=== PATIENT | female | born 1995 | race Asian ===

== ENCOUNTER 2017-08-16 11:46 | Emergency (ER) | payer OTHER ==
[~2017-08-16] VITALS: Ht 154.9 cm; Wt 54.5 kg
[2017-08-16] MEDS ORDERED: NEXP1IMP SC (12:02)
[2017-08-16 13:00] LABS: BASO # 0.1 10^3/uL (0.0-0.2); BASO % 0.3 % (0.0-1.0); EOS # 1.2 10^3/uL (0.0-0.50); EOS % 8.6 % (0.0-3.0); IMMATURE GRANULOCYTE % 0.2 % (0-0); LYMPH # 3.1 10^3/uL (1.5-6.5); LYMPH % 21.4 % (24.0-44.0); MEAN CORPUSCULAR HEMOGLOBIN 30.6 pg (27.0-33.0); MEAN CORPUSCULAR HGB CONC 33.7 g/dl (32.0-36.5); MEAN CORPUSCULAR VOLUME 90.9 fl (80.0-96.0); MONO # 0.6 10^3/uL (0.0-0.8); MONO % 4.2 % (0.0-5.0); NEUTROPHILS # 9.4 10^3/uL (1.8-7.7); NEUTROPHILS % 65.3 % (36.0-66.0); PLATELET COUNT, AUTOMATED 299 10^3/uL (150-450); RED CELL DISTRIBUTION WIDTH 12.4 % (11.5-14.5); WHITE BLOOD COUNT 14.4 10^3/uL (4.0-10.0)
[2017-08-16 13:15] LABS: ANION GAP 4 MEQ/L (8-16); BLOOD UREA NITROGEN 8 MG/DL (7-18); CALCIUM LEVEL 9.3 MG/DL (8.5-10.1); CARBON DIOXIDE LEVEL 30 MEQ/L (21-32); CHLORIDE LEVEL 104 MEQ/L (98-107); CREATININE FOR GFR 0.68 MG/DL (0.55-1.02); GLOMERULAR FILTRATION RATE > 60.0 (>60); GLUCOSE, FASTING 75 MG/DL (70-105); POTASSIUM SERUM 3.6 MEQ/L (3.5-5.1); SODIUM LEVEL 138 MEQ/L (136-145)
--- NOTE | 2017-08-16 13:41 | REP ---
PELVIC ULTRASOUND: Real-time sonographic evaluation of the pelvis performed utilizing transabdominal and endovaginal technique. The bladder is empty. The uterus measures 6.4 x 2.4 x 3.6 cm. Endometrial thickness 2 mm. Ovaries are normal in size and echotexture, right ovary measuring 3.7 x 1.4 x 2.6 cm and left ovary 2.9 x 2.2 x 1.8 cm. There is no adnexal mass or free fluid. There is no evidence of ovarian torsion with blood flow seen in each ovary with duplex Doppler evaluation, RI right ovary 0.39 and left ovary 0.60. IMPRESSION: Negative pelvic ultrasound. Signed by Baldomero Rao MD 08/16/2017 05:06 P
[2017-08-16] MEDS ORDERED: CIPR-249 PO (14:24)
[2017-08-16 14:26] VITALS: BP 100/66
== END 2017-08-16 14:27 | disposition home or self-care (01) ==
LOC: M ED 11:46
DX: N30.90 Cystitis, unspecified without hematuria (principal); N92.1 Excessive and frequent menstruation with irregular cycle; Z79.3 Long term (current) use of hormonal contraceptives

== ENCOUNTER 2018-10-10 03:27 | Emergency (ER) | payer OTHER ==
[2018-10-10] MEDS: NS 1,000 ML IV (04:24)
[2018-10-10] MEDS: ONDANSETRON 4MG/2ML VIAL (J2405) IV (04:24)
[2018-10-10 04:33] LABS: BASO # 0.1 10^3/uL (0.0-0.2); BASO % 0.4 % (0.0-1.0); EOS # 0.3 10^3/uL (0.0-0.50); EOS % 2.4 % (0.0-3.0); HEMATOCRIT 41.4 % (36.0-47.0); HEMOGLOBIN 13.9 g/dl (12.0-15.5); IMMATURE GRANULOCYTE % 0.2 % (0-3.0); LYMPH # 3.8 10^3/uL (1.5-6.5); MEAN CORPUSCULAR HEMOGLOBIN 31.1 pg (27.0-33.0); MEAN CORPUSCULAR HGB CONC 33.6 g/dl (32.0-36.5); MEAN CORPUSCULAR VOLUME 92.6 fl (80.0-96.0); MONO # 0.8 10^3/uL (0.0-0.8); MONO % 6.3 % (0.0-5.0); NEUTROPHILS # 8.1 10^3/uL (1.8-7.7); NEUTROPHILS % 61.7 % (36.0-66.0); PLATELET COUNT, AUTOMATED 249 10^3/uL (150-450); RED BLOOD COUNT 4.47 10^6/uL (4.00-5.40); WHITE BLOOD COUNT 13.1 10^3/uL (4.0-10.0)
[2018-10-10 04:56] LABS: ALBUMIN 3.6 GM/DL (3.2-5.2); ALBUMIN/GLOBULIN RATIO 1.09 (1.00-1.93); ALKALINE PHOSPHATASE 46 U/L (45-117); ALT/SGPT 21 U/L (12-78); ANION GAP 8 MEQ/L (8-16); AST/SGOT 13 U/L (7-37); BILIRUBIN,DIRECT < 0.1 MG/DL (0.0-0.2); BILIRUBIN,TOTAL 0.3 MG/DL (0.2-1.0); BLOOD UREA NITROGEN 17 MG/DL (7-18); CALCIUM LEVEL 8.6 MG/DL (8.5-10.1); CARBON DIOXIDE LEVEL 24 MEQ/L (21-32); CHLORIDE LEVEL 107 MEQ/L (98-107); CREATININE FOR GFR 0.67 MG/DL (0.55-1.30); GLOMERULAR FILTRATION RATE > 60.0 (>60); GLUCOSE, FASTING 78 MG/DL (70-100); LIPASE 257 U/L (73-393); POTASSIUM SERUM 3.9 MEQ/L (3.5-5.1); SODIUM LEVEL 139 MEQ/L (136-145); TOTAL PROTEIN 6.9 GM/DL (6.4-8.2)
[2018-10-10 05:02] LABS: CONTROL LINE HCG INT CTR LINE PRESENT; HCG, SERUM QUALITATIVE NEGATIVE (NEGATIVE)
[2018-10-10] MEDS: METOCLOPRAMIDE INJ 10MG/2ML VIAL (J2765) IV (06:30)
== END 2018-10-10 07:40 | disposition home or self-care (01) ==
LOC: M ED 03:27
DX: A08.4 Viral intestinal infection, unspecified (principal)
CPT/HCPCS: J2405

== ENCOUNTER 2019-05-26 17:47 | Emergency (ER) | payer OTHER ==
[~2019-05-26] VITALS: Ht 152.4 cm; Wt 65.9 kg
[~2019-05-26 17:47] MED LIST: CIPR-249 PO; NEXP1IMP SC; ZOFR4TAB14 PO
[2019-05-26] MEDS ORDERED: ACETAMINOPHEN 325 MG TAB PO ONE (18:30)
[2019-05-26 18:53] LABS: HEMATOCRIT 45.8 % (36.0-47.0); HEMOGLOBIN 15.5 g/dl (12.0-15.5); MEAN CORPUSCULAR HEMOGLOBIN 31.3 pg (27.0-33.0); MEAN CORPUSCULAR HGB CONC 33.8 g/dl (32.0-36.5); MEAN CORPUSCULAR VOLUME 92.5 fl (80.0-96.0); PLATELET COUNT, AUTOMATED 273 10^3/uL (150-450); RED BLOOD COUNT 4.95 10^6/uL (4.00-5.40); WHITE BLOOD COUNT 9.2 10^3/uL (4.0-10.0)
--- NOTE | 2019-05-26 19:12 | REPVR ---
EXAM: US First Trimester, Transabdominal EXAM DATE/TIME: 05/26/2019 6:29 PM CLINICAL HISTORY: 24 years old, female; complicated by abdominal or pelvic pain; Generalized abdominal pain; First trimester; Gestational age or lmp: 04/11/2019; ; Additional info: Pelvic pain/ bleeding; Lmp- 04/11/19 TECHNIQUE: Imaging protocol: Real-time transabdominal obstetrical ultrasound of the maternal pelvis and a first trimester , less than 14 weeks 0 days, with image documentation. COMPARISON: No relevant prior studies available. FINDINGS: GESTATION: Gestation: No gestational sac demonstrated. No yolk sac demonstrated. No pole demonstrated. Gestational age based on LMP 04/11/2019 is 6 weeks 3 days. MATERNAL: Uterus: Uterus measures 6.9 x 3 x 3.5 cm. The endometrial echocomplex measures 6 mm. Cervix: Unremarkable. Right adnexa: Right ovary measures 3.1 x 2.1 x 2.6 cm. RI 0.56. Left adnexa: Left ovary measures 2.6 x 1.6 x 3 cm. RI 0.32. Intraperitoneal: No intraperitoneal free fluid. IMPRESSION: Empty uterus in a patient who is clinically based on LMP of 04/11/2019. Finding may indicate very early IUP prior to visualization of a gestational sac or fetus. Correlation with serial beta-hCG levels and follow ultrasound recommended in order to exclude ectopic verses very early or early failure. Electronically signed by: Thad Harp On 05/26/2019 19:11:29 PM
[2019-05-26 20:02] VITALS: BP 111/73
== END 2019-05-26 20:04 | disposition home or self-care (01) ==
LOC: M ED 17:47
DX: O20.0 Threatened abortion (principal)

== ENCOUNTER → 2019-05-28 | Outpatient (CLI) | payer OTHER | LOC: M LRY 15:39 | PROVIDERS: ATTEND Emergency Medicine | DX: O20.0 Threatened abortion (principal); Z3A.00 Weeks of gestation of pregnancy not specified ==

== ENCOUNTER 2020-04-24 13:25 | Outpatient (CLI) | payer OTHER ==
[~2020-04-24] VITALS: Ht 154.9 cm; Wt 80.8 kg
[2020-04-24 13:49] VITALS: BP 100/56
[2020-04-24] MEDS ORDERED: PRENTAB9 PO (13:51)
[2020-04-24 14:18] VITALS: BP 98/63
[2020-04-24] MEDS ORDERED: FLUCONAZOLE 50MG TABLET PO ONE (16:00)
== END 2020-04-24 14:53 | disposition home or self-care (01) ==
LOC: M LDO 13:25
PROVIDERS: ATTEND Registered Nurse Maternal Newborn
DX: O26.893 Other specified pregnancy related conditions, third trimester (principal); N89.8 Other specified noninflammatory disorders of vagina; Z3A.39 39 weeks gestation of pregnancy
CPT/HCPCS: 59025; 76815; G0378; G0463

== ENCOUNTER 2020-04-28 08:25 | Outpatient (CLI) | payer OTHER ==
[~2020-04-28] VITALS: Ht 154.9 cm; Wt 80.3 kg
[~2020-04-28 08:25] MED LIST changes: +PRENTAB9 PO
[2020-04-28 08:40] VITALS: BP 119/79
--- NOTE | 2020-04-28 09:48 | IPNPDOC ---
Text Note Date of Service The patient was seen on 04/28/20. NOTE LND Outpatient Triage Note S: María Elena is a 24yo at 39+6wks by LMP, EDC 29APR2020, who presents to triage for a labor check. She reports painful contractions that started this morning with bloody show. She endorses movement, denies LOF. complicated by GBS POSITIVE status and history of depression. Starting BMI 28.7 - overweight with excessive weight gain of 30lbs O: VSS, afebrile FHR 130s, moderate variability, + accels, early decelerations noted CTX by TOCO: q2-7 minutes, mild and irregular VE: 40/-3, posterior, moderate, VTX and ballotable; scant bleeding noted, c/w bloody show A: 24yo at 39+6wks, early labor with Category I FHT, reactive. P: Discharge home with labor/danger/return precautions. Discussed comfort measures and encouraged better hydration and to eat at home. F/u as labor progresses or PRN MIROSLAVA GUTIÉRREZ CNM Apr 28, 2020 09:48
== END 2020-04-28 09:46 | disposition home or self-care (01) ==
LOC: M LDO 08:25
PROVIDERS: ATTEND Registered Nurse Maternal Newborn
DX: O26.893 Other specified pregnancy related conditions, third trimester (principal); O26.853 Spotting complicating pregnancy, third trimester; Z3A.39 39 weeks gestation of pregnancy
CPT/HCPCS: 59025; G0378; G0463

== ENCOUNTER 2020-04-28 21:49 | Inpatient (IN) | payer OTHER ==
[~2020-04-28] VITALS: Ht 152.4 cm; Wt 79.7 kg
[2020-04-28 22:00] VITALS: BP 127/76
[2020-04-28] MEDS ORDERED: LR 1,000 ML IV SCH (22:45)
[2020-04-28] MEDS ORDERED: MORPHINE 10 MG/ML 1ML VIAL (J2270) IM ONE (22:45)
[2020-04-28] MEDS ORDERED: MORPHINE 10 MG/ML 1ML VIAL (J2270) IV ONE (22:45)
[2020-04-28] MEDS ORDERED: PROMETHAZINE INJ 25 MG/ML VIAL (J2550) IV ONE (22:45)
--- NOTE | 2020-04-28 22:50 | IPNPDOC ---
Text Note Date of Service The patient was seen on 04/28/20. NOTE patient is a 24 yo @39+6wks gestation presents with regular painful contractions x 1 day. patient was seen in L&D this AM and checked to be 1 cm. She reports her contractions are stronger and are getting more frequent. denies HARSHIL/VB/ +FM. vitals: normal nad abd: gravid, soft, nt, cephalic le: no edema/erythema/tenderness fht: 145/mod guillaume/pos accel/early decels toco: ctx q 6mins. ce: 2cm (per nursing check) a/p patient is in early labor, discussed with patient option for IV pain medication and recheck after patient wakes up. patient desires to have IV pain med. Morphine and phenergan, IV fluid. recheck once patient is awake. VS,Fishbone, I+O VS, Fishbone, I+O Vital Signs Date Time Temp Pulse Resp B/P (MAP) Pulse Ox O2 Delivery O2 Flow Rate FiO2 04/28/20 22:00 98.1 88 18 127/76 (93) DAVY VILLEGAS DO Apr 28, 2020 22:50
[2020-04-29] VITALS (36 sets, daily range): BP systolic 87–130; BP diastolic 46–75
[2020-04-29] MEDS ORDERED: PENICILLIN G POTASSIUM IV 5 MU in D5W MINI-BAG PLUS 100 ML IV STA (03:16)
--- NOTE | 2020-04-29 03:28 | HPEPDOC ---
Obstetrical History & Physical General Date of Admission Apr 29, 2020 at 03:11 History of Present Illness Patient is a 24 yo @ 40 wks gestation presented to L&D for regular painful contraction. She was checked to be 2 cm. She received IV pain medication for rest. Patient rechecked after 4hrs and was 3-4cm with gross rupture during check. 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 BREAST: . ABDOMEN: Gravid and non-tender to touch. FETUS: fetus is vertex (VTX) by Cory. HEART RATE: Regular rate and rhythm. LUNGS: Clear to auscultation (CTA). EXTREMITIES: No edema/erythema/tenderness grossly ruptured efw: 3000gm Vital Signs/I&O Vital Signs Date Time Temp Pulse Resp B/P (MAP) Pulse Ox O2 Delivery O2 Flow Rate FiO2 04/28/20 22:59 20 04/28/20 22:58 88 04/28/20 22:00 98.1 127/76 (93) Pertinent Laboratoy Data Blood Type: A+ RBC Antibody Screen: Negative HIV: Negative Hepatitis B: Negative Rapid Plasma Reagin: Immune Rubella: Immune Chlamydia/Gonorrhea: Negative Group B Streptococcus: Positive Glucose Tolerance Test: 115 Anatomy Ultrasound Placenta Location: Anterior Normal Anatomy: Yes Placenta Previa: No Assessment Heart Rate (FHR): 125 Variability: Increased Accelerations: Positive Decelerations: None Tocometer Contractions: Yes Frequency: irregular Assessment/Plan Assessment patient is a 24 yo @ 40wks gestation admitted for SROM. discussed augmentation of labor using oxytocin. External and internal monitoring as indicated. Risks of emergent section, infection needing antibiotics, bleeding requiring blood transfusion and associated risks, operative vaginal delivery with forceps or vacuum, and episiotomy discussed with patient. DO Maru Plan Admit and orient. 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 Diet: regular Group B Streptococcus (GBS) positive. PCN for prophy standards labs. pain meds as needed anesthesia consult DAVY VILLEGAS DO Apr 29, 2020 03:28
[2020-04-29] MEDS ORDERED: MORPHINE 10 MG/ML 1ML VIAL (J2270) IV ONE (03:45)
[2020-04-29] MEDS ORDERED: PROMETHAZINE INJ 25 MG/ML VIAL (J2550) IV ONE (03:45)
[2020-04-29] MEDS ORDERED: MORPHINE 10 MG/ML 1ML VIAL (J2270) IM ONE (03:45)
[2020-04-29] MEDS: LR 1,000 ML IV SCH ×3 (03:53→10:37)
[2020-04-29 04:04] LABS: HEMATOCRIT 34.6 % (36.0-47.0); HEMOGLOBIN 11.1 g/dl (12.0-15.5); MEAN CORPUSCULAR HGB CONC 32.1 g/dl (32.0-36.5); MEAN CORPUSCULAR VOLUME 87.2 fl (80.0-96.0); PLATELET COUNT, AUTOMATED 286 10^3/uL (150-450); RED BLOOD COUNT 3.97 10^6/uL (4.00-5.40); WHITE BLOOD COUNT 15.5 10^3/uL (4.0-10.0)
[2020-04-29] MEDS ORDERED: FENTANYL 2MCG/ML ROPIVACAINE 0.2% IN 0.9% NACL 100ML IVBAG As Ordered ONE (05:42)
[2020-04-29] MEDS ORDERED: LACTATED RINGER'S 1000 ML IV PRN (07:00)
[2020-04-29] MEDS ORDERED: diphenhydrAMINE 50MG/ML VIAL (J1200) IV PRN (07:00)
[2020-04-29] MEDS ORDERED: FENTANYL/ROPIVACAINE/NACL BAG 100 ML EPIDURAL SCH (07:00)
[2020-04-29] MEDS ORDERED: EPIDURAL COMMENT XX SCH (07:00)
[2020-04-29] MEDS ORDERED: NALOXONE INJ 0.4MG/1ML VIAL (J2310 PER 1MG) IV PRN (07:00)
[2020-04-29] MEDS ORDERED: ONDANSETRON 4MG/2ML VIAL IV PRN (07:00)
[2020-04-29] MEDS ORDERED: EPIDURAL/PCA KEYS XX PRN (07:00)
[2020-04-29] MEDS ORDERED: REFRIGERATOR IV KEYS XX PRN (07:00)
[2020-04-29] MEDS ORDERED: OXYTOCIN DRIP 30 UNITS in IV 1 EA IV SCH ×2 (07:15→15:42)
[2020-04-29] MEDS: ePHEDrine SULFATE 25 MG/5 ML(5MG/ML) SYRINGE IV PRN ×5 (07:42→08:44)
[2020-04-29] MEDS: PENICILLIN G POTASSIUM IV 2.5 MU in IV 1 EA IV SCH ×2 (07:45→11:44)
[2020-04-29] MEDS ORDERED: ePHEDrine INJ 50 MG/ML VIAL IV STA (08:09)
[2020-04-29] MEDS ORDERED: LR 300 ML IV ONE (08:15)
[2020-04-29] MEDS ORDERED: ePHEDrine SULFATE 25 MG/5 ML(5MG/ML) SYRINGE IV STA (08:17)
--- NOTE | 2020-04-29 10:03 | IPNPDOC ---
Obstetrical Progress Note Date of Service Apr 29, 2020 Subjective [place] of Care Assumed care during board sign out of María Elena, a 33yo at 40+0wks, who was admitted this morning for SROM and early labor. She received morphine prior to admission and has since received an epidural. She was also started on low dose pitocin after her epidural. She has received two doses of PCNG for GBS Prophylaxis She denies any concerns at this time and has no c/o pain. Her partner is at the bedside. Objective O: VSS, afebrile, normotensive (she was hypotensive after her epidural, which required ephedrine doses and LR bolus to compensate) VE: deferred at this time; last exam by RN was 5cm FHR 140s, moderate variability, + accels, intermittent variable decelerations (pt was repositioned as initial intervention) CTX by TOCO: q2-4 Pitocin currently running at 4mu/min Vital Signs Date Time Temp Pulse Resp B/P (MAP) Pulse Ox O2 Delivery O2 Flow Rate FiO2 04/29/20 09:19 106 18 105/50 (68) 04/29/20 08:56 98.4 Assessment and Plan Status: Reassuring Group B Streptococcus: Positive Anticipate: Vaginal Delivery Additional Comments A: 24yo at 40+0wks, labor augmentation for SROM; Category II FHT d/t variable decelerations, overall reassuring. P: CEFM x2 Close monitoring of maternal/ status Monitor for s/sx of chorio; limit VEs Continue low dose pitocin augmentation Continue PCN for GBS prophylaxis PO and IV hydration Anticipate Consult with OB as indicated MIROSLAVA GUTIÉRREZ CNM Apr 29, 2020 10:03
[2020-04-29] MEDS ORDERED: RHOGAM 300 MCG (1500 IU) INJ (J2790) IM SCH (15:45)
[2020-04-29] MEDS ORDERED: DIBUCAINE 1% OINTMENT 30GM TOP PRN (15:45)
[2020-04-29] MEDS ORDERED: DOCUSATE SODIUM 100 MG CAP PO PRN (15:45)
[2020-04-29] MEDS ORDERED: LIDOCAINE 1% MDV 20ML VIAL INFIL ONE (15:45)
[2020-04-29] MEDS ORDERED: IBUPROFEN 600 MG TAB PO PRN (15:45)
[2020-04-29] MEDS ORDERED: miSOPROStol 200 MCG TAB (S0191) PR ONE (15:45)
[2020-04-29] MEDS ORDERED: ACETAMINOPHEN TAB 650MG DOSE (2X325MG) PO PRN (15:45)
[2020-04-29] MEDS ORDERED: LIDOCAINE 1% MDV 20ML VIAL As Ordered ONE (15:48)
[2020-04-29] MEDS ORDERED: miSOPROStol 200 MCG TAB (S0191) As Ordered ONE (15:49)
--- NOTE | 2020-04-29 16:57 | DNPDOC ---
[facility] Delivery Note Delivery Note DATE OF DELIVERY: 04/29/2020 at 1449. PREDELIVERY DIAGNOSIS: 40+0 weeks' gestation and labor. POST DELIVERY DIAGNOSIS: Delivered. PROCEDURE: RECREATION SUPERVISOR: EDWARD Gutiérrez ANESTHESIA: Epidural; 1% lidocaine for repair ESTIMATED BLOOD LOSS: 400mL. FINDINGS: 6 pound 1 ounce (2750g) male , Score 7/8, nuchal cord times 1 (loose); right compound hand. DELIVERY SUMMARY: Pt was C/C/+1 (caput at +3) and 1410; she was feeling pressure, but requested to wait a few minutes prior to starting to push. At 1422, she started to push effectively and delivered a viable male infant over a protected perineum at 1449. head delivered KAILYN and restituted to ROT. Loose nuchal cord easily reduced; right arm compound hand noted in scarf position at left shoulder. Left anterior shoulder delivered with ease, followed by right posterior shoulder, then remainder of body delivered to maternal abdomen where he was dried and stimulated. Once cord stopped pulsing, clamped x2 and cut by FOB. Placenta delivered spontaneously and appeared intact, 3VC. Fundus boggy with brisk bleeding; 1000mcg placed rectally and pitocin bolus started; fundus firmed up and bleeding slowed to WNL. Upon inspection of vagina, perineum and cervix, a right labial laceration noted and repaired in usual fashion with 4-0 vicryl rapide; hemostasis achieved; very small perineal abrasion noted, not bleeding and no repair required. Family bonding well, anticipate uncomplicated PP course. EBL 400mL. MIROSLAVA GUTIÉRREZ CNM Apr 29, 2020 16:57
[2020-04-29] MEDS: IBUPROFEN 800 MG TAB PO PRN (18:12)
[2020-04-30] MEDS: IBUPROFEN 800 MG TAB PO PRN ×2 (02:38→23:06)
[2020-04-30 05:37] VITALS: BP 107/52
[2020-04-30] MEDS: ACETAMINOPHEN 500 MG TAB PO PRN (07:45)
[2020-04-30] MEDS: PRENATAL VITAMINS CHEWABLE TABLET PO SCH (07:45)
--- NOTE | 2020-04-30 08:31 | IPNPDOC ---
Progress Note Date of Service: Apr 30, 2020 Day#: 1 Progress Note SUBJECT: María Elena is a 24yo G2 now P1011 s/p uncomplicated spontaneous vaginal d elivery at 40 weeks' at approximately 1448 on 29APR2020 of a male , 6lbs 1oz (2750g) with labial laceration (repaired), doing well day #1. She has been ambulating, voiding spontaneously without issue and tolerating regular diet. Breast feeding. Reports lochia is like a normal period. OBJECTIVE: VITAL SIGNS: Within normal limits, afebrile. Alert and oriented times three. Abdomen: Fundus firm at U-1. Soft, NTTP. Scant lochia. Lower Extremity edema, bilateral; no calf pain. ASSESSMENT: PP Day #1, normal involution, stable and progressing well. without issue at this time. PLAN: 1. Routine PP care. 2. Tylenol and Motrin for pain. 3. Encourage frequent breast feeding and ambulation. 4. Plan to D/C home tomorrow on PP Day #2. VS, I&O, 24H, Fishbone Vital Signs/I&O Vital Signs Date Time Temp Pulse Resp B/P (MAP) Pulse Ox O2 Delivery O2 Flow Rate FiO2 04/30/20 05:37 97.2 69 18 107/52 (70) 04/29/20 18:15 97 Room Air I&O- Last 24 Hours up to 6 AM 04/30/20 05:59 Intake Total 1437 ml Output Total 1500 ml Balance -63 ml MIROSLAVA GUTIÉRREZ CNM Apr 30, 2020 08:31
[2020-04-30 18:00] VITALS: BP 111/76
[2020-05-01 06:39] VITALS: BP 113/73
[2020-05-01] MEDS: PRENATAL VITAMINS CHEWABLE TABLET PO SCH (08:16)
[2020-05-01] MEDS: IBUPROFEN 800 MG TAB PO PRN ×2 (08:17→18:19)
[2020-05-01] MEDS ORDERED: IBUP-1022 PO (12:36)
[2020-05-01] MEDS ORDERED: ACET-683 PO (12:36)
--- NOTE | 2020-05-01 12:40 | IPNPDOC ---
Progress Note Date of Service: May 01, 2020 Day#: 2 Progress Note SUBJECT: María Elena is a 24yo G2 now P1011 s/p uncomplicated spontaneous vaginal d elivery at 40 weeks' at approximately 1448 on 29APR2020 of a male , 6lbs 1oz (2750g) with labial laceration (repaired), doing well day #2. She has been ambulating, voiding spontaneously without issue and tolerating regular diet. Breast feeding with formula supplementation. Reports lochia is light. OBJECTIVE: VITAL SIGNS: Within normal limits, afebrile. Alert and oriented times three. Abdomen: Fundus firm at U-2. Soft, NTTP. Scant lochia. Lower Extremity edema, bilateral; no calf pain. ASSESSMENT: PP Day #2, normal involution, stable and progressing well. with formula supplementation. PLAN: 1. Routine PP care. 2. Tylenol and Motrin for pain. 3. Encourage frequent breast feeding (supplement after putting infant to breast; pump after infant fed) and ambulation. 4. Discharge home today. 5. f/u at 6-8 weeks PP for routine PP exam VS, I&O, 24H, Fishbone Vital Signs/I&O Vital Signs Date Time Temp Pulse Resp B/P (MAP) Pulse Ox O2 Delivery O2 Flow Rate FiO2 05/01/20 06:39 97.8 66 18 113/73 (86) 04/30/20 18:00 99 Room Air MIROSLAVA GUTIÉRREZ CNM May 01, 2020 12:40
--- NOTE | 2020-05-01 12:43 | OBDS ---
[facility] Obstetrical Discharge Sum. Obstetrical Discharge Summary Date: May 01, 2020 Time: 12:20 : 2 Term: 1 Pre-term: 0 Abortions: 1 Livin Labor Spontaneous Labor. Delivery Sex: Male Weight: pounds (6), ounces (1), grams (2750) A/P, Post Course List any complications Admission diagnosis: Labor Discharge diagnosis: Delivered Condition at Discharge: Stable Discharge Instructions: Return/emergency precautions; frequent , ambulation, and hydration; rest when sleeps Activity: Increase as tolerated Diet: Regular Medications: Motrin/Tylenol Follow-up: 6-8 weeks with [facility] (call to schedule) MIROSLAVA GUTIÉRREZ CNM May 01, 2020 12:43
[2020-05-01] MEDS: ACETAMINOPHEN 500 MG TAB PO PRN (13:58)
[2020-05-01 18:05] VITALS: BP 130/84
--- NOTE | 2020-05-04 21:27 | IPN ---
DATE: 04/29/2020 This patient requested circumcision of her male , after discussing risks, benefits of circumcision, the medical, the nonmedical indications, the penile block and aftercare, expressed understanding of penile block aftercare and bleeding, signed the consent form. All questions answered. 20-minute discussion. We await the clearance by the leadership program associate.
== END 2020-05-01 19:20 | disposition home or self-care (01) | DRG 807 ==
LOC: M LDO 21:49 → M LDI 04-29 03:11 → M OBS 04-29 18:15
PROVIDERS: ADMIT Obstetrics & Gynecology; ATTEND Obstetrics & Gynecology
PROC: 10E0XZZ Delivery of Products of Conception, External Approach (ICD-10-PCS; principal; 2020-04-29)
PROC: 0HQ9XZZ Repair Perineum Skin, External Approach (ICD-10-PCS; 2020-04-29)
DX: O48.0 Post-term pregnancy (principal); Z37.0 Single live birth; Z3A.40 40 weeks gestation of pregnancy; O69.81X0 Labor and delivery complicated by cord around neck, without compression, not applicable or unspecified; O32.6XX0 Maternal care for compound presentation, not applicable or unspecified; O70.0 First degree perineal laceration during delivery

== ENCOUNTER 2020-08-16 18:43 | Emergency (ER) | payer OTHER ==
[~2020-08-16] VITALS: Ht 154.9 cm; Wt 76.7 kg
[~2020-08-16 18:43] MED LIST changes: +ACET-683 PO; +IBUP-1022 PO
[2020-08-16] MEDS ORDERED: NAPR250T4 PO (18:50)
[2020-08-16] MEDS ORDERED: ROBA750T4 PO (19:57)
[2020-08-16] MEDS ORDERED: ASPE4PAD TOP (19:57)
[2020-08-16] MEDS ORDERED: NAPR-837 PO (19:57)
[2020-08-16] MEDS ORDERED: KETOROLAC 60MG 2ML VIAL IM ONE (20:00)
[2020-08-16] MEDS ORDERED: diazePAM 10 MG TAB PO ONE (20:00)
[2020-08-16] MEDS ORDERED: LIDOCAINE 5% (LIDODERM) PATCH TD ONE (20:00)
[2020-08-16 20:01] VITALS: BP 112/81
[2020-08-17] MEDS ORDERED: **NOTE PATIENT COMMENT** MISC XX ONE (08:00)
== END 2020-08-16 20:11 | disposition home or self-care (01) ==
LOC: M ED 18:43
DX: S39.012A Strain of muscle, fascia and tendon of lower back, initial encounter (principal); X50.1XXA Overexertion from prolonged static or awkward postures, initial encounter; Y92.9 Unspecified place or not applicable; Y93.9 Activity, unspecified; Y99.9 Unspecified external cause status; Z79.899 Other long term (current) drug therapy
CPT/HCPCS: 96372; 99283; J1885

== ENCOUNTER 2020-10-03 21:16 | Emergency (ER) | payer OTHER ==
[~2020-10-03] VITALS: Ht 154.9 cm; Wt 80.4 kg
[~2020-10-03 21:16] MED LIST changes: +ASPE4PAD TOP; +NAPR-837 PO; +NAPR250T4 PO; +ROBA750T4 PO
[2020-10-03 21:17] VITALS: BP 120/74
== END 2020-10-03 22:55 | disposition home or self-care (01) ==
LOC: M ED 21:16 → EEVIPCON 21:16 → M ED 22:55
DX: Z20.828 Contact with and (suspected) exposure to other viral communicable diseases (principal); R05 Cough; J02.9 Acute pharyngitis, unspecified; Z79.899 Other long term (current) drug therapy
CPT/HCPCS: 99283; U0003